=== PATIENT | female | born 1980 | race Caucasian/White ===

== ENCOUNTER 2016-10-28 20:07 | Emergency (ER) | payer MEDICAID ==
[~2016-10-28] VITALS: Ht 147.3 cm; Wt 54.4 kg
[2016-10-28 20:07] VITALS: BP 127/73; PULSE 75; RESP 18; TEMP 98.8; O2SAT 99
[2016-10-28] MEDS ORDERED: MAG-AL HYDROX/SIMETH 30 ML UDC PO ONE (22:45)
[2016-10-28] MEDS ORDERED: LIDOCAINE VISCOUS 2%, 15 ML UDC MM ONE (22:45)
[2016-10-28] MEDS ORDERED: BELLADONNA ALKALOIDS/PHENOBARB 5 ML UDC PO ONE (22:45)
[2016-10-28 23:38] VITALS: BP 127/73; PULSE 75; RESP 18; TEMP 98.8; O2SAT 99
== END 2016-10-28 23:38 | disposition home or self-care (01) ==
LOC: SED 20:07
DX: K21.9 Gastro-esophageal reflux disease without esophagitis (principal); R03.0 Elevated blood-pressure reading, without diagnosis of hypertension; Z88.0 Allergy status to penicillin; Z90.49 Acquired absence of other specified parts of digestive tract
CPT/HCPCS: 81025; 99284; J2001

== ENCOUNTER 2023-08-07 16:28 | Emergency (ER) | payer MEDICAID ==
[~2023-08-07] VITALS: Ht 157.5 cm; Wt 61.2 kg
[~2023-08-07 16:28] MED LIST: HYDR-3917 PO; NAPR-688 PO
[2023-08-07 17:27] VITALS: BP_SYST 122; PULSE 84; RESP 17; TEMP 97.3; O2SAT 100
[2023-08-07] MEDS ORDERED: EPIN0.3P3 IM (20:44)
[2023-08-07] MEDS ORDERED: FAMOTIDINE 20 MG TABLET PO ONE (20:45)
[2023-08-07] MEDS ORDERED: DIPHENHYDRAMINE HCL 50 MG CAPSULE PO ONE (20:45)
[2023-08-07] MEDS ORDERED: ONDANSETRON 4 MG ODT TAB PO ONE (20:45)
[2023-08-07] MEDS ORDERED: DIPH25CA83 PO (20:46)
[2023-08-07] MEDS ORDERED: FAMO20TA8 PO (20:47)
[2023-08-07 21:00] VITALS: BP_SYST 121; PULSE 70; RESP 20; TEMP 97.7; O2SAT 100
== END 2023-08-07 21:00 | disposition home or self-care (01) ==
LOC: SED 16:28
DX: L50.9 Urticaria, unspecified (principal); T78.40XA Allergy, unspecified, initial encounter; Z88.0 Allergy status to penicillin; Z79.899 Other long term (current) drug therapy; X58.XXXA Exposure to other specified factors, initial encounter
CPT/HCPCS: 99284; Q0163; Q0162

== ENCOUNTER 2023-10-18 00:16 | Emergency (ER) | payer MEDICAID ==
[~2023-10-18] VITALS: Ht 144.8 cm; Wt 61.2 kg
[~2023-10-18 00:16] MED LIST changes: +DIPH25CA83 PO; +EPIN0.3P3 IM; +FAMO20TA8 PO
[2023-10-18 00:24] VITALS: BP_SYST 125; PULSE 85; RESP 24; TEMP 97.8; O2SAT 100
[2023-10-18] MEDS ORDERED: NACL 0.9% 1,000 ML IV ONE (00:30)
[2023-10-18] MEDS ORDERED: DIPHENHYDRAMINE INJ 50 MG/ML VIAL IVP ONE (00:30)
[2023-10-18] MEDS ORDERED: EPINEPHRINE HCL/PF 1 MG/ML AMP SUBCUT ONE (00:30)
[2023-10-18] MEDS ORDERED: methylPREDNISolone SOD SUCC/PF 62.5 MG/ML VIAL IVP ONE (00:30)
[2023-10-18] MEDS ORDERED: methylPREDNISolone SOD SUCC/PF 62.5 MG/ML VIAL ONE (00:47)
[2023-10-18] MEDS ORDERED: MED4 PO (02:04)
[2023-10-18] MEDS ORDERED: FEXO180T94 PO (02:04)
[2023-10-18 02:10] VITALS: BP_SYST 124; PULSE 73; RESP 22; TEMP 98.4; O2SAT 95
== END 2023-10-18 02:10 | disposition home or self-care (01) ==
LOC: SED 00:16
DX: T78.02XA Anaphylactic reaction due to shellfish (crustaceans), initial encounter (principal); L50.9 Urticaria, unspecified; R06.02 Shortness of breath; R07.81 Pleurodynia; Z88.0 Allergy status to penicillin; Z79.899 Other long term (current) drug therapy; Y99.8 Other external cause status
CPT/HCPCS: 99284; 96374; 96361; 96375; 96372; J1200; J0171; J7030; J2930

== ENCOUNTER 2023-10-27 13:24 | Emergency (ER) | payer MEDICAID ==
[~2023-10-27] VITALS: Ht 149.9 cm; Wt 61.2 kg
[~2023-10-27 13:24] MED LIST changes: +FEXO180T94 PO; +MED4 PO
[2023-10-27 13:45] VITALS: BP_SYST 112; PULSE 72; RESP 18; TEMP 97.8; O2SAT 99
[2023-10-27] MEDS ORDERED: KETOROLAC TROMETHAMINE 60 MG/2 ML VIAL IM ONE (14:30)
[2023-10-27 15:00] LABS: BILIRUBIN,URINE NEGATIVE (NEGATIVE); BLOOD, URINE NEGATIVE (NEGATIVE); CLARITY/URINE CLEAR (CLEAR); COLOR,URINE YELLOW (YELLOW); GLUCOSE,URINE NEGATIVE (NEGATIVE); KETONES,URINE TRACE (NEGATIVE); LEUKOCYTE ESTERASE ,URINE TRACE (NEGATIVE); NITRITE, URINE NEGATIVE (NEGATIVE); PH,URINE 7.5 (5.0-8.0); PROTEIN URINE NEGATIVE (NEGATIVE); UROBILINOGEN,URINE 0.2 (0.2-1.0)
[2023-10-27 15:10] LABS: BACTERIA,URINE FEW /HPF (None Seen); MUCUS,URINE 1+ /LPF (None Seen); RBC,URINE 0-3 /HPF (0-3)
[2023-10-27 15:51] LABS: BASOPHILS % (AUTO) 0.2 % (0.0-2.0); EOSINOPHILS # (AUTO) 0.1 K/uL (0.0-0.4); EOSINOPHILS % (AUTO) 1.1 % (0.0-4.0); HEMATOCRIT 37.9 % (36-48); HEMOGLOBIN 12.9 g/dL (12.0-16.0); LYMPHOCYTES # (AUTO) 2.7 K/uL (1.0-5.5); LYMPHOCYTES % (AUTO) 32.8 % (20.5-51.5); MEAN CORPUSCULAR HEMOGLOBIN 28 pg (27-31); MEAN CORPUSCULAR HGB CONC 34 % (32-36); MEAN CORPUSCULAR VOLUME 83 fL (79.0-98.0); MONOCYTES # (AUTO) 0.7 K/uL (0.0-1.0); MONOCYTES % (AUTO) 7.9 % (1.7-9.3); NEUTROPHILS # (AUTO) 4.9 K/uL (1.8-7.7); PLATELET COUNT (AUTO) 220 K/uL (130-430); RED BLOOD CELL COUNT(AUTO) 4.57 MIL/uL (4.2-6.2); RED CELL DISTRIBUTION WIDTH 15.5 % (9.0-15.0); WHITE BLOOD COUNT (AUTO) 8.4 K/uL (4.8-10.8)
[2023-10-27 16:17] LABS: CALCIUM 9.2 mg/dL (8.4-11.0); CREATININE 0.84 mg/dL (0.55-1.30); POTASSIUM 4.5 mmol/L (3.5-5.1)
[2023-10-27 16:23] LABS: SERUM HCG (QUALITATIVE) NEGATIVE (NEGATIVE)
[2023-10-27 16:30] LABS: ALBUMIN 3.3 g/dL (3.4-4.8); BILIRUBIN,DIRECT 0.1 mg/dL (0.0-0.3); TOTAL BILIRUBIN 0.8 mg/dL (0.0-1.0); TOTAL PROTEIN, SERUM 6.7 g/dL (6.4-8.3)
[2023-10-27] MEDS ORDERED: IBUP-1969 PO (16:42)
[2023-10-27 16:50] VITALS: BP_SYST 113; PULSE 67; RESP 17; TEMP 98.3; O2SAT 98
== END 2023-10-27 16:51 | disposition home or self-care (01) ==
LOC: SED 13:24
DX: R10.2 Pelvic and perineal pain (principal); M54.50 Low back pain, unspecified; Z88.0 Allergy status to penicillin; Z79.899 Other long term (current) drug therapy
CPT/HCPCS: 99285; 74176; 80076; 80048; 81001; 82150; 84703; 83690; 85025; 87086; 36415; 76376; 96372; 82397; 81000; 81015; J1885

== ENCOUNTER 2024-04-10 22:44 | Emergency (ER) | payer MEDICAID ==
[~2024-04-10] VITALS: Ht 149.9 cm; Wt 72.6 kg
[~2024-04-10 22:44] MED LIST changes: +IBUP-1969 PO
[2024-04-10 22:45] VITALS: BP_SYST 136; PULSE 102; RESP 20; TEMP 98; O2SAT 97
[2024-04-10] MEDS: DIPHENHYDRAMINE INJ 50 MG/ML VIAL IVP ONE (23:09)
[2024-04-10] MEDS: methylPREDNISolone SOD SUCC/PF 62.5 MG/ML VIAL IVP ONE (23:09)
[2024-04-10] MEDS: NACL 0.9% 500 ML IV ONE (23:09)
[2024-04-11 00:24] VITALS: BP_SYST 133; PULSE 71; RESP 22; TEMP 98; O2SAT 98
[2024-04-11] MEDS ORDERED: EPIN0.3P3 IM (00:24)
== END 2024-04-11 00:24 | disposition home or self-care (01) ==
LOC: SED 22:44
DX: R07.0 Pain in throat (principal); T78.1XXA Other adverse food reactions, not elsewhere classified, initial encounter; R06.02 Shortness of breath; R21 Rash and other nonspecific skin eruption; Z88.0 Allergy status to penicillin; Z79.899 Other long term (current) drug therapy; Z79.2 Long term (current) use of antibiotics; X58.XXXA Exposure to other specified factors, initial encounter
CPT/HCPCS: 99284; 96374; 96361; 96375; J1200; J7030; J2930

== ENCOUNTER 2024-04-16 22:07 | Emergency (ER) | payer MEDICAID ==
[~2024-04-16] VITALS: Ht 149.9 cm; Wt 59.0 kg
[2024-04-16 22:14] VITALS: BP_SYST 126; PULSE 73; RESP 18; TEMP 98.4; O2SAT 100
[2024-04-16] MEDS: methylPREDNISolone SOD SUCC/PF 62.5 MG/ML VIAL IVP ONE (22:43)
[2024-04-16] MEDS: DIPHENHYDRAMINE INJ 50 MG/ML VIAL IVP ONE (22:43)
[2024-04-16] MEDS: NACL 0.9% 1,000 ML IV ONE (22:43)
[2024-04-16] MEDS: ONDANSETRON HCL 4 MG/2 ML VIAL IVP ONE (23:17)
[2024-04-16] MEDS ORDERED: METH-776 PO (23:59)
[2024-04-17 00:03] VITALS: BP_SYST 115; PULSE 70; RESP 16; TEMP 98.3; O2SAT 99
== END 2024-04-17 00:03 | disposition home or self-care (01) ==
LOC: SED 22:07
DX: R07.0 Pain in throat (principal); T78.1XXA Other adverse food reactions, not elsewhere classified, initial encounter; Z88.0 Allergy status to penicillin; Z91.018 Allergy to other foods; Z79.899 Other long term (current) drug therapy; Z79.2 Long term (current) use of antibiotics; X58.XXXA Exposure to other specified factors, initial encounter
CPT/HCPCS: 99284; 96374; 96375; 96361; J1200; J2405; J7030; J2930

== ENCOUNTER 2024-04-29 22:33 | Emergency (ER) | payer MEDICAID ==
[~2024-04-29] VITALS: Ht 149.9 cm; Wt 59.0 kg
[~2024-04-29 22:33] MED LIST changes: +METH-776 PO
[2024-04-29 22:36] VITALS: BP_SYST 130; PULSE 93; RESP 20; TEMP 98.8; O2SAT 99
[2024-04-30] MEDS: DIPHENHYDRAMINE HCL 25 MG CAPSULE PO ONE (01:32)
[2024-04-30] MEDS ORDERED: PRED20TA PO (01:57)
[2024-04-30] MEDS ORDERED: DIPH25CA83 PO (01:57)
[2024-04-30 02:20] VITALS: BP_SYST 120; PULSE 78; RESP 18; TEMP 98.1; O2SAT 98
== END 2024-04-30 02:20 | disposition home or self-care (01) ==
LOC: SED 22:33
DX: R21 Rash and other nonspecific skin eruption (principal); Z88.0 Allergy status to penicillin; Z91.018 Allergy to other foods; Z91.013 Allergy to seafood; Z79.899 Other long term (current) drug therapy; Z79.2 Long term (current) use of antibiotics
CPT/HCPCS: 99283; Q0163

== ENCOUNTER 2024-06-07 00:03 | Emergency (ER) | payer MEDICAID ==
[~2024-06-07] VITALS: Ht 149.9 cm; Wt 59.0 kg
[~2024-06-07 00:03] MED LIST changes: +PRED20TA PO
[2024-06-07 00:08] VITALS: BP_SYST 120; PULSE 81; RESP 22; TEMP 96.7; O2SAT 99
[2024-06-07] MEDS: DIPHENHYDRAMINE HCL 25 MG CAPSULE PO ONE (00:53)
[2024-06-07] MEDS: FAMOTIDINE 20 MG TABLET PO ONE (00:53)
[2024-06-07] MEDS: LORazepam 1 MG TABLET PO ONE (02:23)
[2024-06-07] MEDS ORDERED: DIPH25CA83 PO (03:26)
[2024-06-07] MEDS ORDERED: LORA-259 PO (03:26)
[2024-06-07 03:35] VITALS: BP_SYST 116; PULSE 89; RESP 18; TEMP 98; O2SAT 96
== END 2024-06-07 03:35 | disposition home or self-care (01) ==
LOC: SED 00:03
DX: L29.9 Pruritus, unspecified (principal); T50.905A Adverse effect of unspecified drugs, medicaments and biological substances, initial encounter; Z88.0 Allergy status to penicillin; Z91.018 Allergy to other foods; Z91.013 Allergy to seafood; Z79.899 Other long term (current) drug therapy; Z79.2 Long term (current) use of antibiotics; Y92.89 Other specified places as the place of occurrence of the external cause
CPT/HCPCS: 99284; Q0163